=== PATIENT | female | born 1995 | race Caucasian/White ===

== ENCOUNTER 2018-03-09 18:57 | Inpatient (IN) | payer BC, OTHER ==
[~2018-03-09] VITALS: Ht 165.1 cm; Wt 65.8 kg
--- NOTE | 2018-03-09 21:50 | NUR ---
PRE ADMISSION NOTE Pt is a 23 y/o female seen at intake, A&Ox4, ambulatory with steady gait. Pt is currently intoxicated from heroin IV and Xanax PO. Reports the following substance use history: 1. Xanax 3-4 mg daily for 3 weeks, last intake of 4 mg 1 hour ago. 2. Heroin IV 0.5-1 g daily for 3 weeks, last intake of 1 g 4 hours ago. 3. Methamphetamine IV 0.5 g daily for 3 weeks, last intake of 0.5 g "3-4 days ago." 4. Cocaine IV once 3 days ago. 5. Marijuana "a few hits" occasionally, last intake 1 day ago. Vital signs: BP 132/75, HR 114, RR 19, T 98.5, 02 98%, Pain 5/10 in hips described as cramps. Pt reports PMH of anxiety, depression, PTSD, ADHD, and bipolar disorder. Pt brought home meds, explained to pt that any controlled substances will be disposed of, pt verbalized understanding. Pt reports seizure history "two to three times" last one was "3-4 months ago" and did not receive medical care for it. Pt reports that her mother who is a nurse watched her "seize on the floor at home and didn't want to call the ambulance" after she stopped taking heroin that was laced with benzodiazepines. Pt reports OD x 2 from heroin. Pt is stable to arrive on the unit. Endorsed to primary care nurse.
[2018-03-09 22:15] VITALS: BP 132/75
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
[2018-03-09] MEDS ORDERED: SRC OPIOID WITHDRAWAL ADMITTING PROTOCOL XX PRN ×2 (22:30→22:45)
[2018-03-09] MEDS ORDERED: SRC BENZO WITHDRAWAL ADMITTING PROTOCOL XX PRN ×2 (22:30→22:45)
[2018-03-09] MEDS ORDERED: GABA-536 PO (22:59)
[2018-03-09] MEDS ORDERED: PRAZ2CAP2 PO (22:59)
[2018-03-09] MEDS ORDERED: ONDA8TAB13 PO (22:59)
[2018-03-09] MEDS ORDERED: BUSP10TA3 PO (22:59)
[2018-03-09] MEDS ORDERED: LEVE500T20 PO (22:59)
[2018-03-09] MEDS ORDERED: METH500T PO (22:59)
[2018-03-09] MEDS ORDERED: HYDR50CA PO (22:59)
[2018-03-09] MEDS ORDERED: ETON1VAG VG (22:59)
[2018-03-09] MEDS ORDERED: HYDR12.5 PO (22:59)
[2018-03-09] MEDS ORDERED: LOPERAMIDE HCL 2 MG CAPSULE PO PRN ×2 (23:00)
[2018-03-09] MEDS ORDERED: MAG HYDROX/AL HYDROX/SIMETH 30 ML LIQUID UDC PO PRN (23:00)
[2018-03-09] MEDS ORDERED: DIAZEPAM 10 MG TABLET PO PRN ×2 (23:00)
[2018-03-09] MEDS ORDERED: MAGNESIUM HYDROXIDE 30 ML LIQUID UDC PO PRN (23:00)
[2018-03-09] MEDS ORDERED: LORAZEPAM 2 MG/1 ML VIAL IM PRN (23:00)
[2018-03-09] MEDS ORDERED: MIRALAX 17 GM POWD.PACK PO PRN (23:00)
[2018-03-09] MEDS ORDERED: ONDANSETRON ODT 4 MG TAB.RAPDIS SL PRN (23:00)
[2018-03-09] MEDS ORDERED: ONDANSETRON 4 MG/2 ML VIAL IM PRN (23:00)
[2018-03-09] MEDS ORDERED: DICYCLOMINE HCL 20 MG TABLET PO PRN (23:00)
[2018-03-09] MEDS ORDERED: BUPRENORPHINE HCL 2 MG TAB.SUBL SL PRN (23:00)
[2018-03-09] MEDS ORDERED: CLONIDINE HCL 0.1 MG TABLET PO PRN (23:00)
[2018-03-09] MEDS ORDERED: DIAZEPAM 5 MG TABLET PO PRN (23:00)
[2018-03-09] MEDS ORDERED: CARI3CAP PO (23:20)
[2018-03-09 23:34] LABS: BASOPHILS # (AUTO) 0.1 K/uL (0.0-8.0); BASOPHILS % (AUTO) 0.7 % (0.0-2.0); EOSINOPHILS # (AUTO) 0.3 K/uL (0.0-0.7); EOSINOPHILS % (AUTO) 3.3 % (0.0-7.0); HEMATOCRIT 37.9 % (31.2-41.9); HEMOGLOBIN 12.7 g/dL (10.9-14.3); LYMPHOCYTES # (AUTO) 3.7 K/uL (20.0-40.0); LYMPHOCYTES % (AUTO) 45.3 % (20.5-51.5); MEAN CORPUSCULAR HEMOGLOBIN 26.5 uug (24.7-32.8); MEAN CORPUSCULAR HGB CONC 34 g/dL (32.3-35.6); MEAN CORPUSCULAR VOLUME 78.9 fL (75.5-95.3); MONOCYTES # (AUTO) 0.5 K/uL (2.0-10.0); MONOCYTES % (AUTO) 6.3 % (0.0-11.0); NEUTROPHILS # (AUTO) 3.7 K/uL (1.8-8.9); NEUTROPHILS % (AUTO) 44.4 % (38.5-71.5); PLATELET COUNT (AUTO) 362 K/uL (179-408); WHITE BLOOD COUNT (AUTO) 8.2 K/uL (3.8-11.8)
[2018-03-09 23:45] LABS: ETHANOL < 3 MG/DL (0-0)
[2018-03-09 23:46] LABS: *URINE HCG, QUAL NEGATIVE (NEGATIVE)
[2018-03-09 23:50] LABS: ALANINE AMINOTRANSFERASE 110 U/L (14-59); ALKALINE PHOSPHATASE 85 U/L (50-136); ASPARTATE AMINOTRANSFERASE 279 U/L (15-37); BILIRUBIN,TOTAL 0.5 mg/dL (0.2-1.0); CARBON DIOXIDE 32 mmol/L (21-32); CHLORIDE 98 mmol/L (98-107); CREATININE 0.9 mg/dL (0.6-1.3); GLUCOSE 82 mg/dL (74-106); MAGNESIUM 1.4 mg/dL (1.8-2.4); POTASSIUM 3.4 mmol/L (3.5-5.1); TOTAL PROTEIN, SERUM 7.3 g/dL (6.4-8.2); UREA NITROGEN, BLOOD 10 mg/dL (7-18)
[2018-03-09 23:54] LABS: *AMPHETAMINE, URINE POSITIVE (NEGATIVE); *BARBITURATE, URINE NEGATIVE (NEGATIVE); *CANNABINOID, URINE POSITIVE (NEGATIVE); *COCCAINE, URINE POSITIVE (NEGATIVE); *OPIATE, URINE POSITIVE (NEGATIVE); *PHENCYCLIDINE SCREEN,URINE NEGATIVE (NEGATIVE)
[2018-03-09 23:58] LABS: THYROID STIMULATING HORMONE 0.163 mIU/mL (0.358-3.740)
--- NOTE | 2018-03-10 00:58 | NUR ---
V/S refused and COWS and CIWA Assessment deferred for sleep. Respirations even and unlabored. Will continue to monitor.
--- NOTE | 2018-03-10 04:57 | NUR ---
V/S refused and COWS and CIWA Assessment deferred for sleep. Respirations even and unlabored. Will continue to monitor.
--- NOTE | 2018-03-10 07:00 | NUR ---
End of shift note Newly admitted patient. Pt was continuously noted with fatigue, anxiety, and agitation. Pt remained in room for majority of shift except to get food from kitchen and to go smoke on smoking patio. Pt remained compliant and cooperative with all aspects of treatment. Pt was not given any PRN medications during shift. Pt remains on PRN medications until further evaluation from MD in AM. Pt slept for a total of 7 HRS. COWS and CIWA were deferred for moderate intoxication and sleep. Respirations even and unlabored. Will endorse to day shift nurse.
--- NOTE | 2018-03-10 07:30 | NUR ---
START OF SHIFT Endorse rcvd from ongoing nurse, client is admitted for alprazolam, opioid withdrawal. Client also uses Methamphetamine, Adderall, and cocaine. Client is in room, lying on her back, she sounds asleep, easy to awake, RR 16, even, non-labored. Client has an uneventful night, she slept 7 hrs. Bed in lowest/loxked position. Side rails x 2 up/padded. Call light within reach. Will continue to monitor.
[2018-03-10 08:30] VITALS: BP 103/76
[2018-03-10] MEDS: METHOCARBAMOL 750 MG TABLET PO PRN (08:34)
[2018-03-10] MEDS: MULTIVITAMINS,THERAPEUTIC TABLET PO SCH (08:34)
[2018-03-10] MEDS: HYDROXYZINE PAMOATE 25 MG CAPSULE PO PRN (08:34)
[2018-03-10] MEDS: IBUPROFEN 600 MG TABLET PO PRN (08:35)
[2018-03-10] MEDS: ACETAMINOPHEN 325 MG TABLET PO PRN (08:35)
--- NOTE | 2018-03-10 08:35 | NUR ---
CIWA 15/COWS 13 PRN Valium 10mg PO, for withdrawal symptoms and CIWA 15, Bentyl 20mg PO for abdominal spasms, Clonidine 0.1mg PO for agitation, cold/hills, Vistaril 50mg PO for anxiety, Motrin 600mg and Tylenol 650mg for headache 10/19, Robaxin 750mg for myalgia on BLE. Client declined PRN Subutex at this time statig, "I feel like shit, but I know I'm not ready yet." Call light within reach.
--- NOTE | 2018-03-10 08:42 | NUR ---
PPD Test administered to L forearm.
[2018-03-10] MEDS ORDERED: POTASSIUM CHLORIDE 20 MEQ TAB.PRT.SR PO ONE (09:00)
[2018-03-10] MEDS ORDERED: TUBERCULIN,PURIF.PROT.DERIV. 5 TU/0.1 ML TEST ID ONE (09:00)
[2018-03-10] MEDS ORDERED: MAGNESIUM OXIDE 400 MG TABLET PO ONE (09:00)
--- NOTE | 2018-03-10 09:35 | NUR ---
Reassess PRN Valium 10mg, Bentyl 20mg, Clonidine 0.1mg, Vistaril 50mg, Motrin 600mg and Tylenol 650mg and Robaxin 750mg: CIWA 10, client reports slight relief from anxiety, agitation, abdominal spasms, cold/chills headache and myalgia. Call light within reach. Will continue to monitor.
--- NOTE | 2018-03-10 09:53 | NUR ---
COWS 14 & PRN Subutex 4mg SL Client presents with anxiety, mb increased P 100, irritability, yawning, enlarged pupils, nasal congestion, and difficulty concentrating. Subutex 4mg SL administered. Will continue to monitor. Call light within reach.
[2018-03-10] MEDS ORDERED: FLUO20CA36 PO (09:55)
--- NOTE | 2018-03-10 10:23 | NUR ---
Reassess PRN Subutex 4mg SL, COWS 10 Client reports slight relief from anxiety, P 88, irritability, and generalized body aches, client is able to increase activity, took a shower, put on make-up and join activity group. Will continue to monitor. Call light within reach.
--- NOTE | 2018-03-10 10:30 | NUR ---
Therapist prompted client to attend group therapy.
[2018-03-10 12:54] VITALS: BP 117/70
[2018-03-10] MEDS ORDERED: 5 DAY TAPER BUPRENORPHINE -SERENITY PROTOCOL SL PRN (13:00)
[2018-03-10] MEDS ORDERED: 5 DAY TAPER VALIUM-SERENITY PROTOCOL PO PRN (13:00)
[2018-03-10] MEDS: HYDROCHLOROTHIAZIDE 12.5 MG CAPSULE PO SCH (13:18)
[2018-03-10] MEDS: GABAPENTIN 400 MG CAPSULE PO SCH ×2 (13:18→17:37)
[2018-03-10] MEDS: BUPRENORPHINE HCL 2 MG TAB.SUBL SL SCH ×3 (13:18→20:18)
--- NOTE | 2018-03-10 13:18 | NUR ---
CIWA 15 / COWS 14 Client presents with agitation, anxiety, cold/chills, enlarged pupils, fine tremors, flushed facial skin, generalized muscle aches, abdominal cramps, and difficulty concentrating. Subutex 4mg SL and Gabapentin 400mg PO administered, will continue to monitor. Call light within reach.
[2018-03-10] MEDS: DIAZEPAM 10 MG TABLET PO SCH ×2 (15:27→20:17)
[2018-03-10 16:55] VITALS: BP 119/69
[2018-03-10] MEDS ORDERED: busPIRone 10 MG TABLET PO SCH (17:00)
[2018-03-10] MEDS: busPIRone 5 MG TABLET PO SCH (17:36)
--- NOTE | 2018-03-10 17:36 | NUR ---
CIWA 14 / COWS 14 Client continues to presents with emotional volatility, flat affect, agitation, anxiety, cold/chills, enlarged pupils, fine tremors, flushed facial skin, generalized muscle aches, abdominal cramps, and difficulty concentrating. Subutex 4mg SL and Gabapentin 400mg PO administered, will continue to monitor. Call light within reach.
--- NOTE | 2018-03-10 19:14 | NUR ---
END OF SHIFT Endorse client to incoming nurse, client is in room, a/o x 4, client continues to presents with emotional volatility, flat affect, agitation, anxiety, cold/chills, enlarged pupils, fine tremors, flushed facial skin, generalized muscle aches, abdominal cramps, poor appetite, and difficulty concentrating. PRN Valium 10mg PO, for withdrawal symptoms and CIWA 15, Bentyl 20mg PO for abdominal spasms, Clonidine 0.1mg PO for agitation, cold/hills, Vistaril 50mg PO for anxiety, Motrin 600mg and Tylenol 650mg for headache 10/19, Robaxin 750mg for myalgia on BLE, Subutex 4mg SL for COWS 13. Last CIWA 14 / COWS 14 @ 1700. Client is compliant with group therapy. Client consumed 25-50% of meals. PO fluid intake 846mL, void x 1. Client requested to be tested for Chlamydia, GC, Trichoma, sample urine not provided yet. [place] precautions. Call light within reach.
--- NOTE | 2018-03-10 19:22 | NUR ---
Start of shift note Received report from day shift nurse. Pt is a 23 yo female, A+Ox4, presenting to [facility] for medically supervised Benzo/Opiate withdrawal. Pt was also using Adderall, Methamphetamines, and Cocaine. Pt noted with restlessness, anxiety, and agitation. Pt has HX of seizure, PNA, PTSD< ADHD, anxiety, depression, and bipolar disorder which will be monitored during shift. Pt is on 5 day Valium and 5 day Subutex tapers, tolerated well. Respirations even and unlabored. Will continue to monitor.
[2018-03-10 20:12] VITALS: BP 120/77
--- NOTE | 2018-03-10 20:12 | NUR ---
COWS and CIWA Assessment COWS: 10 and CIWA: 10. Pt noted with fine tremors, pulse 80, sweat on brow, anxiety, agitation, chills, enlarged pupils, restlessness, mild diffuse discomfort, stuffy nose, and mild stomach cramping. Respirations even and unlabored. Will continue to monitor.
[2018-03-10] MEDS: PRAZOSIN HCL 1 MG CAPSULE PO SCH (20:18)
--- NOTE | 2018-03-11 00:58 | NUR ---
V/S refused and COWS and CIWA Assessment deferred for sleep. Respirations even and unlabored. Will continue to monitor.
--- NOTE | 2018-03-11 04:53 | NUR ---
V/S refused and COWS and CIWA Assessment deferred for sleep. Respirations even and unlabored. Will continue to monitor.
--- NOTE | 2018-03-11 07:00 | NUR ---
End of shift note Pt was continuously noted with agitation, restlessness, and anxiety. Pt remained in room for majority of shift except to get food from kitchen, to go smoke on smoking patio, and to interact with other patients in recreational room. Pt remained cooperative and compliant with all aspects of treatment. Pt was not given any PRN medications during shift. Pt remains on 5 day Valium and 5 day Subutex tapers, tolerated well. Pt slept for a total of 8 HRS. Last COWS: 10 and Last CIWA: 10 @2011. Respirations even and unlabored. Will endorse to day shift nurse.
[2018-03-11 07:24] LABS: ALANINE AMINOTRANSFERASE 85 U/L (14-59); ALKALINE PHOSPHATASE 72 U/L (50-136); ASPARTATE AMINOTRANSFERASE 134 U/L (15-37); BILIRUBIN,TOTAL 0.3 mg/dL (0.2-1.0); CARBON DIOXIDE 31 mmol/L (21-32); CHLORIDE 104 mmol/L (98-107); CREATININE 0.8 mg/dL (0.6-1.3); GLUCOSE 95 mg/dL (74-106); MAGNESIUM 1.7 mg/dL (1.8-2.4); TOTAL PROTEIN, SERUM 6.2 g/dL (6.4-8.2); UREA NITROGEN, BLOOD 9 mg/dL (7-18)
[2018-03-11 07:35] LABS: THYROID STIMULATING HORMONE < 0.007 mIU/mL (0.358-3.740)
--- NOTE | 2018-03-11 07:46 | NUR ---
BEGINNING OF SHIFT Patient received in bed with eyes closed, respirations even and unlabored. Patient endorsement report received from overnight caregiver nurse, all pertinent information was discussed. Will educate patient regarding plan of care for the day and medication regimen. Patient with admitting Dx: opiate/bzo withdrawal. Also with Methamphetamine, aderral and cocaine substance use. Patient with Ongoing 5 day Valium and 5 day Subutex taper as ordered. Per overnight caregiver patient with last COW score of: 10, and last CIWA score of: 10. Received no PRNs during overnight caregiver. Patient slept for 8 hours. Safety measures are in place. call light kept with in reach, will continue to monitor.
[2018-03-11 08:52] VITALS: BP 91/63
[2018-03-11] MEDS: HYDROCHLOROTHIAZIDE 12.5 MG CAPSULE PO SCH (08:54)
[2018-03-11] MEDS: busPIRone 5 MG TABLET PO SCH ×3 (08:54→16:50)
[2018-03-11] MEDS: BUPRENORPHINE HCL 2 MG TAB.SUBL SL SCH ×3 (08:54→22:10)
[2018-03-11] MEDS: FLUOXETINE HCL 20 MG CAPSULE PO SCH (08:54)
[2018-03-11] MEDS: GABAPENTIN 400 MG CAPSULE PO SCH ×3 (08:54→16:50)
[2018-03-11] MEDS: MULTIVITAMINS,THERAPEUTIC TABLET PO SCH (08:54)
[2018-03-11] MEDS: DIAZEPAM 5 MG TABLET PO SCH ×4 (08:54→22:11)
--- NOTE | 2018-03-11 09:00 | NUR ---
COW/CIWA ASSESSMENT Noted exhibiting the following s/sx of withdrawal: elevated heart rate, c/o chills, difficulty sitting still, enlarged pupils, nasal congestion, moist eyes, tremors that can be felt but not seen, yawning, anxiety and agitation, current COW score of: 10, current CIWA score of: 9.
[2018-03-11 09:09] LABS: HEPATITIS B SURFACE AG Negative (Negative)
[2018-03-11] MEDS ORDERED: MAGNESIUM OXIDE 400 MG TABLET PO ONE (12:30)
[2018-03-11 12:50] VITALS: BP 107/66
--- NOTE | 2018-03-11 13:20 | NUR ---
COW/CIWA ASSESSMENT Noted exhibiting the following s/sx of withdrawal: c/o chills, difficulty sitting still, enlarged pupils, nasal congestion, moist eyes, tremors that can be felt but not seen, yawning, anxiety and agitation, current COW score of: 9, current CIWA score of: 9.
--- NOTE | 2018-03-11 15:45 | NUR ---
MRSA NARES + Received MRSA results, as per results MRSA positive of nares, notified Dr. Lenz with new orders for contact isolation and Bactroban oint as ordered, patient was provided and teaching regarding MRSA nares, verbalized understanding.
[2018-03-11 16:54] VITALS: BP 99/65
[2018-03-11] MEDS: MUPIROCIN 2% OINT 22 GM TUBE NS SCH ×2 (17:37→22:12)
--- NOTE | 2018-03-11 19:00 | NUR ---
END OF SHIFT Patient continues under close observation, alert and oriented x4, ongoing Subutex and Valium taper as ordered. Patient received no PRN mediations during shift. Was seen and examined by Dr. Lenz during shift. Patients magnesium was replaced as ordered. Noted exhibiting the following s/sx of withdrawal: elevated heart rate, c/o chills, difficulty sitting still, enlarged pupils, nasal congestion, moist eyes, tremors that can be felt but not seen, yawning, anxiety and agitation, last COW score of: 10, last CIWA score of: 9. Encouraged to develop coping skills and utilization of non pharmacological interventions. Patient appears disheveled, odorous and unkempt, noted with flat affect, avoidant eye contact and depressed mood. Encouraged to attend group therapies/sessions to learn new coping skills to prevent relapse. Safety measures are in place. Received MRSA results, as per results MRSA positive of nares, notified Dr. Lenz with new orders for contact isolation and Bactroban oint as ordered, patient was provided and teaching regarding MRSA nares, verbalized understanding. Call light kept with in reach, will continue to monitor. Patient endorsed to shiftman nurse, all pertinent information was discussed.
--- NOTE | 2018-03-11 19:43 | NUR ---
START OF SHIFT NOTE Rcvd report from outgoing nurse. Pt is a 23 y/o female A/O to person, place, time, and purpose. Pt was admitted for medically supervised withdrawal from Benzodiazepines and Opiates. Pt is on day 2 of a 5 day Vlium and Subutex taper. Pt does have a past h/o withdrawal induced seizure, the last one 3 months ago. Pt has been presenting w/ Pt rcvd no PRN medications during previous shift. Last CIWA 9 and COWS 10 @ 1600. Call light is within reach. Pt will continue to be monitored and needs met. Addendum: 03/11/18 at 2228 by SHERRY FOSTER RN Wrong time and note.
--- NOTE | 2018-03-11 19:53 | NUR ---
START OF SHIFT NOTE Rcvd report from outgoing nurse. Pt is a 23 y/o female A/O to person, place, time, and purpose. Pt was admitted for medically supervised withdrawal from Benzodiazepines and Opiates. Pt is on day 2 of a 5 day Vlium and Subutex taper. Pt does have a past h/o withdrawal induced seizure, the last one 3 months ago. Pt has been presenting w/fine tremors, clammy skin, nasal stuffiness, restlessness, depressed mood, and anxiety. Pt rcvd no PRN medications during previous shift. Last CIWA 9 and COWS 10 @ 1600. Call light is within reach. Pt will continue to be monitored and needs met.
[2018-03-11 20:01] VITALS: BP 124/76
--- NOTE | 2018-03-11 20:01 | NUR ---
CIWA AND COWS ASSESSMENT CIWA 9 and COWS 10. Pt has been presenting w/fine tremors, clammy skin, nasal stuffiness, restlessness, depressed mood, and anxiety. V/S; T:98.0, P:90, RR:12, SPO2:10, BP:124/76.
[2018-03-11] MEDS: PRAZOSIN HCL 1 MG CAPSULE PO SCH (22:10)
[2018-03-11] MEDS: IBUPROFEN 600 MG TABLET PO PRN (22:16)
[2018-03-11] MEDS: METHOCARBAMOL 750 MG TABLET PO PRN (22:16)
--- NOTE | 2018-03-11 22:16 | NUR ---
PRN ROBAXIN AND MOTRIN ADMINISTRATION Robaxin 750mg an Motrin 600mg given for body aches and pain. Pt c/o 610 pain that i generalized and also of a head ache. Will reassess pt in 1 hr.
--- NOTE | 2018-03-11 23:16 | NUR ---
NORA CONDE AND ALANNA REASSESSMENT Pt is in bed and states relief from pain. She states "its like 04/21 not". Will continue to monitor pt.
--- NOTE | 2018-03-12 00:05 | NUR ---
DILLON AND ALLY DEFERRED Pt is in bed w/ her eyes closed. Pt's respirations are unlabored and even.
--- NOTE | 2018-03-12 04:07 | NUR ---
CIWA AND COWS DEFERRED Pt is in bed w/ her eyes closed. Pt's respirations are unlabored and even.
[2018-03-12 06:52] LABS: BILIRUBIN,TOTAL 0.2 mg/dL (0.2-1.0); MAGNESIUM 1.6 mg/dL (1.8-2.4); POTASSIUM 3.8 mmol/L (3.5-5.1); TOTAL PROTEIN, SERUM 5.5 g/dL (6.4-8.2)
--- NOTE | 2018-03-12 07:13 | NUR ---
END OF SHIFT NOTE Endorsed pt to oncoming nurse. Pt is a 23 y/o female A/O to person, place, time, and purpose. Pt was admitted for medically supervised withdrawal from Benzodiazepines and Opiates. Pt completed day 2 of a 5 day Vlium and Subutex taper. Pt does have a past h/o withdrawal induced seizure, the last one 3 months ago. Pt continued presenting w/fine tremors, clammy skin, nasal stuffiness, restlessness, depressed mood, and anxiety. Pt denies any S/I or H/I. PRN Robaxin and Motrin were given and noted effective. Pts fluid intake was 1658ml and she slept for 8hrs.Last CIWA 9 and COWS 10 @ 1999. Call light is within reach.
--- NOTE | 2018-03-12 07:52 | NUR ---
BEGINNING OF SHIFT Patient endorsement report received from information security analyst nurse, all pertinent information was discussed. Patient received in bed with eyes closed, respirations even and unlabored. Will educate patient regarding plan of care for the day and medication regimen. Patient with Ongoing 5 day Valium and 5 day Subutex taper as ordered, scheduled to begin day 2 of taper. Per information security analyst patient with last COW score of: 10, and last CIWA score of: 9. Received PRN: Motrin and Robaxin during information security analyst. Patient slept for 8 hours. Safety measures are in place. call light kept with in reach, will continue to monitor.
[2018-03-12 08:55] VITALS: BP 91/64
[2018-03-12] MEDS: busPIRone 5 MG TABLET PO SCH ×3 (08:57→16:36)
[2018-03-12] MEDS: FLUOXETINE HCL 20 MG CAPSULE PO SCH (08:57)
[2018-03-12] MEDS: MULTIVITAMINS,THERAPEUTIC TABLET PO SCH (08:57)
[2018-03-12] MEDS: HYDROCHLOROTHIAZIDE 12.5 MG CAPSULE PO SCH (08:57)
[2018-03-12] MEDS: DIAZEPAM 5 MG TABLET PO SCH ×3 (08:57→21:00)
[2018-03-12] MEDS: GABAPENTIN 400 MG CAPSULE PO SCH ×3 (08:57→16:36)
[2018-03-12] MEDS: MUPIROCIN 2% OINT 22 GM TUBE NS SCH ×2 (08:57→21:00)
[2018-03-12] MEDS ORDERED: BUPRENORPHINE HCL 2 MG TAB.SUBL SL SCH (09:00)
[2018-03-12] MEDS ORDERED: MAGNESIUM OXIDE 400 MG TABLET PO ONE (12:45)
[2018-03-12 13:36] VITALS: BP 119/68
[2018-03-12] MEDS: BUPRENORPHINE HCL 2 MG TAB.SUBL SL SCH ×2 (14:53→21:00)
--- NOTE | 2018-03-12 17:04 | NUR ---
COW/CIWA ASSESSMENT Patient still noted presenting with: elevated heart rate, c/o chills, difficulty sitting still, enlarged pupils, nasal congestion, moist eyes, tremors that can be felt but not seen, yawning, anxiety and agitation, current COW score of: 10, current CIWA score of: 9.
[2018-03-12 17:13] VITALS: BP 108/59
--- NOTE | 2018-03-12 19:03 | NUR ---
END OF SHIFT Patient alert and oriented x4, Ongoing Subutex and Valium taper as ordered, patient currently on day 2 of tapers. Patient continues under close observation. Patients magnesium was replaced as ordered. Continues on Contact isolation due to MRSA nares. Isolation precautions were observed at all times. Continues with ongoing Bactroban ointment, administered as ordered. Patient appears disheveled, odorous and unkempt, noted with flat affect, avoidant eye contact and depressed mood. Encouraged to attend group therapies/sessions to learn new coping skills to prevent relapse. Noted exhibiting the following s/sx of withdrawal: elevated heart rate, c/o chills, difficulty sitting still, enlarged pupils, nasal congestion, moist eyes, tremors that can be felt but not seen, yawning, anxiety and agitation, last COW score of: 10, last CIWA score of: 9. Encouraged to develop coping skills and utilization of non pharmacological interventions. Safety measures are in place. Call light kept with in reach, will continue to monitor. Patient endorsed to shift manager nurse, all pertinent information was discussed.
--- NOTE | 2018-03-12 19:37 | NUR ---
START OF SHIFT NOTE Rcvd report from outgoing nurse. Pt is a 23 y/o female A/O to person, place, time, and purpose. Pt was admitted for medically supervised withdrawal from Benzodiazepines and Opiates. Pt is on day 3 of a 5 day Subutex and Valium taper. Pt has been presenting w/ anxiety, restlessness, depressed mood, flat affect, lethargy, sweats, fine tremors, flushing, and sweats. Pt rcvd no PRN medications during previous shift. Last CIWA 9 and COWS 10 @ 1600. Call light is within reach. Pt will continue to be monitored and needs met.
[2018-03-12 20:07] VITALS: BP 121/79
--- NOTE | 2018-03-12 20:07 | NUR ---
CIWA AND COWS ASSESSMENT CIWA 9 and COWS 10. Pt has been presenting w/ anxiety, restlessness, depressed mood, flat affect, lethargy, sweats, fine tremors, flushing, and sweats. V/S: T:98.7, P:100, RR:14, SPO2:98, BP:121/79.
[2018-03-12] MEDS: PRAZOSIN HCL 1 MG CAPSULE PO SCH (21:00)
--- NOTE | 2018-03-12 21:00 | NUR ---
NURSING NOTE Pt is in bed w/ her eyes closed. Pt is unarousable to voice and touch. All scheduled meds held. hydraulic rubbish compactor mechanic and MD made aware.
--- NOTE | 2018-03-13 00:07 | NUR ---
CIWA AND COWS DEFERRED Pt is in bed w/ her eyes closed. Pt's respirations are unlabored and even.
--- NOTE | 2018-03-13 04:07 | NUR ---
CIWA AND COWS DEFERRED Pt is in bed w/ her eyes closed. Pt's respirations are unlabored and even.
--- NOTE | 2018-03-13 06:58 | NUR ---
END OF SHIFT NOTE Endorsed pt to oncoming nurse. Pt is a 23 y/o female A/O to person, place, time, and purpose. Pt was admitted for medically supervised withdrawal from Benzodiazepines and Opiates. Pt completed day 3 of a 5 day Subutex and Valium taper. Pt continued presenting w/ anxiety, drowsiness, depressed mood, flat affect, lethargy, sweats, fine tremors, flushing, and sweats. Pt denies any S/I or H/I. No PRN medications during previous shift. Pts fluid intake was 1591ml and she slept for 11hrs. Last CIWA 9 and COWS 10 @ 1999. Call light is within reach.
--- NOTE | 2018-03-13 07:30 | NUR ---
Start of shift note; Received report from night nurse. Patient is a 23 year old female admitted on 03/09/18 for Benzodiazepine, Opiate withdrawal. Patient was placed on 5 day Valium and 5 day Subutex tapers. Patient is AOX4, presented with anxiety, agitation, restless legs, complaining of nausea, headache, tremors, intermittent sweats, nasal stuffiness. All safety measures secured. Will continue to monitor patient.
[2018-03-13 08:00] VITALS: BP 96/66
--- NOTE | 2018-03-13 08:00 | NUR ---
COWS/CIWA Assessment; Patient is AOX4, presented with anxiety, agitation, restless legs, complaining of nausea, headache, tremors, intermittent sweats, nasal stuffiness. Patient's current COWS score is 10 and CIWA of 11. Will continue to monitor patient.
[2018-03-13 08:04] LABS: CREATININE 0.9 mg/dL (0.6-1.3); MAGNESIUM 1.5 mg/dL (1.8-2.4)
[2018-03-13] MEDS: MULTIVITAMINS,THERAPEUTIC TABLET PO SCH (09:16)
[2018-03-13] MEDS: busPIRone 5 MG TABLET PO SCH ×3 (09:16→16:55)
[2018-03-13] MEDS: GABAPENTIN 400 MG CAPSULE PO SCH ×3 (09:16→16:55)
[2018-03-13] MEDS: MUPIROCIN 2% OINT 22 GM TUBE NS SCH ×2 (09:16→20:48)
[2018-03-13] MEDS: HYDROCHLOROTHIAZIDE 12.5 MG CAPSULE PO SCH (09:17)
[2018-03-13] MEDS: DIAZEPAM 5 MG TABLET PO SCH ×2 (09:17→20:47)
[2018-03-13] MEDS: FLUOXETINE HCL 20 MG CAPSULE PO SCH (09:17)
[2018-03-13] MEDS: BUPRENORPHINE HCL 2 MG TAB.SUBL SL SCH ×3 (09:18→20:47)
[2018-03-13] MEDS: IBUPROFEN 600 MG TABLET PO PRN (09:52)
--- NOTE | 2018-03-13 09:55 | NUR ---
PRN medication; Patient reported nausea and headache/pain rated 7/10 on pain scale. PRN Motrin given for pain PO and PRN Zofran 4mg ODT given for nausea. All safety measures secured. Will continue to monitor patient for effectiveness of medication.
--- NOTE | 2018-03-13 10:55 | NUR ---
Re-assessment; Patient denies nausea and headache. PRN Zofran and Motrin noted to be effective.
[2018-03-13 11:06] LABS: *TRIC.VAG. NAA Negative (Negative)
[2018-03-13] MEDS ORDERED: MAGNESIUM OXIDE 400 MG TABLET PO ONE (11:15)
[2018-03-13 12:00] VITALS: BP 102/61
--- NOTE | 2018-03-13 12:00 | NUR ---
COWS/CIWA Assessment; Patient is AOX4, presented with anxiety, agitation, restless legs, complaining of nausea, headache, tremors, intermittent sweats, nasal stuffiness. Patient's COWS score continues to be 10 and CIWA of 11. Will continue to monitor patient.
--- NOTE | 2018-03-13 12:00 | NUR ---
Magnesium supplement; Patient's magnesium is 1.5. Supplemented patient with Mag-ox 800 mg PO for supplement per MD order.
--- NOTE | 2018-03-13 13:14 | NUR ---
Therapist prompted client to attend group therapy sessions.
[2018-03-13 16:00] VITALS: BP 118/67
--- NOTE | 2018-03-13 18:23 | NUR ---
End of shift note; Patient is AOX4, presented with anxiety, agitation, restless legs, complaining of nausea, headache, tremors, intermittent sweats, nasal stuffiness. Patient's last COWS score is 10 and CIWA of 10 at 1600. Patient remained compliant with treatment plan and medication regime. Medications were effective in reducing withdrawal symptoms. Patient participated in group activates and therapy. Encouraged patient to maintain adequate fluid and nutritional intake, patient verbalized understanding. All safety measures secured. Met all needs.
--- NOTE | 2018-03-13 19:10 | NUR ---
Start of Shift Received 23 year old female patient admitted 03/09/18 to [facility] for medically supervised withdrawal from Benzodiazepines and Opiates. Pt was given PRN Zofran and Motrin on day shift. Last CIWA 10 and COWS 10 @1600. Pt is in bed resting with eyes closed. Respirations are even and unlabored. Bed is low, side rails up x 2, and call hart in reach. Will continue to monitor.
[2018-03-13 20:00] VITALS: BP 108/60
--- NOTE | 2018-03-13 20:00 | NUR ---
CIWA/COWS deferred Pt is in bed resting with eyes closed. Respirations are even and unlabored. Bed is low, side rails up x 2, and call hart in reach. Will continue to monitor.
--- NOTE | 2018-03-13 20:45 | NUR ---
CIWA 10/COWS 10 Pt anxious, agitated, withdrawn, flat affect.
[2018-03-13] MEDS: PRAZOSIN HCL 1 MG CAPSULE PO SCH (20:47)
[2018-03-13] MEDS: diphenhydrAMINE 50 MG CAPSULE PO PRN (23:06)
--- NOTE | 2018-03-13 23:06 | NUR ---
PRN Benadryl/Vistaril Pt anxious, restless, and requested something to help sleep. Medication given per order. Will monitor effect.
[2018-03-13] MEDS: HYDROXYZINE PAMOATE 25 MG CAPSULE PO PRN (23:08)
--- NOTE | 2018-03-14 | NUR ---
CIWA/COWS deferred and Vitals refused Pt resting with eyes closed. Respirations even and unlabored. CIWA/COWS deferred and pt refused vitals. Continue to monitor.
--- NOTE | 2018-03-14 00:08 | NUR ---
Reassess PRN Benadryl/Vistaril Medication effective. Pt resting with eyes closed. Respirations are even and unlabored. Continue to monitor.
--- NOTE | 2018-03-14 04:00 | NUR ---
CIWA/COWS deferred and Vitals refused Pt resting with eyes closed. Respirations even and unlabored. CIWA/COWS deferred and pt refused vitals. Continue to monitor.
--- NOTE | 2018-03-14 06:54 | NUR ---
End of Shift Endorsing 23 year old female patient admitted 03/09/18 to [facility] for medically supervised withdrawal from Benzodiazepines and Opiates. Pt currently on day 5 of a 5 day Valium and 5 day Subutex taper, which she is tolerating well. Pt received PRN Benadryl and Vistaril on trust and estates attorney. Last CIWA 10 and COWS 10 @2044. Pt is in bed resting with eyes closed. Respirations are even and unlabored. Bed is low, side rails up x 2, and call hart in reach. PO intake 1360 ml, voided x 3, BM x 0, and slept 9 hours.
[2018-03-14 07:06] LABS: *GC NAA Negative (Negative)
--- NOTE | 2018-03-14 07:30 | NUR ---
Start of Shift Note: Report received from shift supervisor film processing nurse. Pts last COWS was 10 and last CIWA was 10. Pt slept for 9 hours. Upon start of shift, pt was in bed with eyes closed. Pt has no complaints at this time. Pt educated with current plan of care. Pt verbalized understanding. Pt currently on 5-day Valium and 5-day Subutex taper. Bed in lowest position. Side rails up x2. Call light functioning and within reach. All needs attended and met. Will continue to monitor.
[2018-03-14 08:00] VITALS: BP 97/55
--- NOTE | 2018-03-14 08:00 | NUR ---
COWS 9 CIWA 9 Pt noted with restlessness, mild anxiety, and mild discomfort. COWS 9 CIWA 9
[2018-03-14 08:30] LABS: CREATININE 0.9 mg/dL (0.6-1.3); MAGNESIUM 1.7 mg/dL (1.8-2.4); POTASSIUM 3.9 mmol/L (3.5-5.1)
[2018-03-14] MEDS: HYDROCHLOROTHIAZIDE 12.5 MG CAPSULE PO SCH (08:39)
[2018-03-14] MEDS: GABAPENTIN 400 MG CAPSULE PO SCH ×3 (08:39→16:46)
[2018-03-14] MEDS: MULTIVITAMINS,THERAPEUTIC TABLET PO SCH (08:39)
[2018-03-14] MEDS: FLUOXETINE HCL 20 MG CAPSULE PO SCH (08:39)
[2018-03-14] MEDS: busPIRone 5 MG TABLET PO SCH ×3 (08:40→16:46)
[2018-03-14] MEDS: MUPIROCIN 2% OINT 22 GM TUBE NS SCH ×2 (08:41→21:57)
[2018-03-14] MEDS ORDERED: DIAZEPAM 5 MG TABLET PO SCH (09:00)
[2018-03-14] MEDS ORDERED: BUPRENORPHINE HCL 2 MG TAB.SUBL SL SCH (09:00)
[2018-03-14] MEDS: IBUPROFEN 600 MG TABLET PO PRN (11:06)
[2018-03-14] MEDS: ACETAMINOPHEN 325 MG TABLET PO PRN (11:06)
--- NOTE | 2018-03-14 11:06 | NUR ---
Motrin and Tylenol PRN: Pt c/o migraine. Pain level 7/10. Encouraged pt to drink more fluids. Pt requested for Excedrin but pt has available PRN medications. Pt agreed to take PRN Motrin and Tylenol. PRN Motrin and Tylenol administered. Will continue to monitor.
[2018-03-14 12:00] VITALS: BP 88/42
--- NOTE | 2018-03-14 12:00 | NUR ---
Tylenol and Motrin Reassessment: Pt still noted with headache pain. Pt stated 8/10 pain level. Pt verbalized she will try to relax and take a nap to get rid of migraine. Will continue to monitor.
--- NOTE | 2018-03-14 12:00 | NUR ---
COWS 9 CIWA 9 Pt noted mild anxiety, mild agitation. Pt is also restless. COWS 9 CIWA 9.
--- NOTE | 2018-03-14 12:08 | NUR ---
Therapist prompted client to attend group therapy sessions.
[2018-03-14] MEDS ORDERED: MAGNESIUM OXIDE 400 MG TABLET PO ONE (12:15)
[2018-03-14] MEDS ORDERED: HYDR12.5 PO (13:39)
[2018-03-14] MEDS ORDERED: GABA-536 PO (13:39)
[2018-03-14] MEDS ORDERED: BUSP10TA3 PO (13:39)
[2018-03-14] MEDS ORDERED: CARI3CAP PO (13:39)
[2018-03-14] MEDS ORDERED: FLUO20CA36 PO (13:39)
[2018-03-14] MEDS ORDERED: METH-406 PO (13:39)
[2018-03-14] MEDS ORDERED: PRAZ2CAP2 PO (13:39)
[2018-03-14 16:00] VITALS: BP 92/52
--- NOTE | 2018-03-14 16:00 | NUR ---
COWS and CIWA deferred: Pt in bed with eyes closed. Respirations even and unlabored. Attempted to assess COWS and CIWA but pt stated she was tired. Will continue to monitor.
--- NOTE | 2018-03-14 18:30 | NUR ---
COWS 7 CIWA 8 Pt noted with slight restlessness, some anxiety. Pt reported some relief from headache. COWS 7 CIWA 8
--- NOTE | 2018-03-14 19:08 | NUR ---
End of Shift Notes: Pt currently in activity room. Pt complained of migraine during shift. PRN Motrin and Tylenol given. Last COWS 7 and CIWA 8. Pt is scheduled to be discharged tomorrow. 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 Fall precautions observed. Bed in lowest position. Side rails up x2. Call light functioning and within reach. All needs attended and met. Will endorse to machinist 2nd shift nurse.
--- NOTE | 2018-03-14 19:30 | NUR ---
START OF SHIFT Pt is a 23 y/o female admitted on 03/09/18 for benzo and opiate withdrawal. Pt was also using methamphetamine, adderall, and cocaine. Pt was given PRN Motrin and Tylenol for headache and last COWS 7 and CIWA 8 during day shift. Upon assessment pt presented with anxiety, agitation, intermittent headache, difficulty sleeping, disheveled appearance, unkempt room. Medications due. Safety measures in place. Call light within reach. Will continue to monitor. Addendum: 03/14/18 at 2232 by OCTAVIO CASTANEDA RN Additional: Pt is also on contact isolation d/t MRSA in the nares.
[2018-03-14 20:00] VITALS: BP 115/78
--- NOTE | 2018-03-14 20:00 | NUR ---
CIWA/COWS ASSESSMENT CIWA 8 and COWS 7. Pt presents with anxiety, agitation, intermittent headache, difficulty sleeping, disheveled appearance, unkempt room.
[2018-03-14] MEDS: PRAZOSIN HCL 1 MG CAPSULE PO SCH (21:57)
[2018-03-14] MEDS: diphenhydrAMINE 50 MG CAPSULE PO PRN (22:13)
--- NOTE | 2018-03-14 22:13 | NUR ---
PRN BENADRYL ADMINISTRATION Pt requests sleep aid for difficulty falling asleep. Safety measures in place. Call light within reach. Will continue to monitor.
--- NOTE | 2018-03-14 23:13 | NUR ---
PRN BENADRYL REASSESSMENT Pt laying in bed with eyes closed, medication noted effective. Safety measures in place. Call light within reach. Will continue to monitor.
--- NOTE | 2018-03-15 | NUR ---
CIWA/COWS DEFERRED AND VITALS REFUSED Pt laying in bed with eyes closed, CIWA/COWS deferred, to be assessed when pt is awake per orders. Vitals refused. Respirations even and unlabored. Safety measures in place. Call light within reach. Will continue to monitor.
--- NOTE | 2018-03-15 07:07 | NUR ---
END OF SHIFT Pt is a 23 y/o female admitted on 03/09/18 for benzo and opiate withdrawal. Pt was also using methamphetamine, adderall, and cocaine. Pt finished a 5 day Valium and 5 day Subutex taper and is scheduled to be d/c today. Pt presented with anxiety, agitation, intermittent headache, stuffy nose, difficulty sleeping, disheveled appearance, unkempt room. Scheduled medications and PRN Benadryl administered, effective in S/S of withdrawal as verbalized by pt. Last COWS 7 and CIWA 8. Pt slept 7 hours. Intake 1300 ml, void x 2, stool x 0. Safety measures in place. Call light within reach. Pts needs have been met. Endorsed to day shift nurse.
[2018-03-15 08:00] VITALS: BP 100/62
--- NOTE | 2018-03-15 08:00 | NUR ---
START OF SHIFT AND COWS CIWA ASSESSMENT Pt 23 y/o female admitted for for benzo/ opiate withdrawal. Pt received in room awake watching television. Pt alert and oriented to name, place, and time. Perrla. Skin warm and moist to touch. Respirations even and unlabored. Appears disheveled. Clothes scattered throughout the room. Encouraged to maintain hygiene. Cows=5 ciwa=6 @0800. Anxious and restless. Pacing. It was reported that pt slept for 7 hours last night. Pt completed a 5 day valium and a 5 day subutex taper. Pt is scheduled to be discharged today. Bed on lowest position with side railsx x2 up for safety. Call light within reach.
[2018-03-15 08:33] LABS: BILIRUBIN,TOTAL 0.3 mg/dL (0.2-1.0); POTASSIUM 4.3 mmol/L (3.5-5.1); TOTAL PROTEIN, SERUM 6.4 g/dL (6.4-8.2)
[2018-03-15] MEDS ORDERED: MAGNESIUM OXIDE 400 MG TABLET PO ONE (08:45)
[2018-03-15] MEDS: FLUOXETINE HCL 20 MG CAPSULE PO SCH (08:46)
[2018-03-15] MEDS: GABAPENTIN 400 MG CAPSULE PO SCH (08:46)
[2018-03-15] MEDS: busPIRone 5 MG TABLET PO SCH (08:46)
[2018-03-15] MEDS: MULTIVITAMINS,THERAPEUTIC TABLET PO SCH (08:46)
[2018-03-15] MEDS: MUPIROCIN 2% OINT 22 GM TUBE NS SCH (08:47)
[2018-03-15] MEDS: HYDROCHLOROTHIAZIDE 12.5 MG CAPSULE PO SCH (09:00)
--- NOTE | 2018-03-15 09:31 | NUR ---
DISCHARGE Pt 23 y/o female admitted for for benzo/ opiate withdrawal. Pt alert and oriented to name, place, and time. Perrla. Skin warm and moist to touch. Respirations even and unlabored. VS wnl. Pt denies any SI/ HI. Home medications, discharge papers, belongings in the cabinet, belongings in the cassette, and prescriptions packed in pt bag. No distress noted. Pt discharged to [facility] via private transport.
== END 2018-03-15 09:31 | disposition other institution (70) | DRG 895 ==
LOC: SRC 21:09
PROVIDERS: ADMIT Family Medicine Addiction Medicine; ATTEND Family Medicine Addiction Medicine
PROC: HZ2ZZZZ Detoxification Services for Substance Abuse Treatment (ICD-10-PCS; principal; 2018-03-09)
PROC: HZ31ZZZ Individual Counseling for Substance Abuse Treatment, Behavioral (ICD-10-PCS; 2018-03-10)
PROC: HZ41ZZZ Group Counseling for Substance Abuse Treatment, Behavioral (ICD-10-PCS; 2018-03-10)
DX: F13.230 Sedative, hypnotic or anxiolytic dependence with withdrawal, uncomplicated (principal); G40.509 Epileptic seizures related to external causes, not intractable, without status epilepticus; F31.30 Bipolar disorder, current episode depressed, mild or moderate severity, unspecified; F11.23 Opioid dependence with withdrawal; F15.23 Other stimulant dependence with withdrawal; F14.10 Cocaine abuse, uncomplicated; Z91.89 Other specified personal risk factors, not elsewhere classified; F17.210 Nicotine dependence, cigarettes, uncomplicated; F43.10 Post-traumatic stress disorder, unspecified; F90.9 Attention-deficit hyperactivity disorder, unspecified type; F41.1 Generalized anxiety disorder; Z91.5 Personal history of self-harm; Z79.899 Other long term (current) drug therapy; E83.42 Hypomagnesemia; E87.6 Hypokalemia; Z72.51 High risk heterosexual behavior; R74.0 Nonspecific elevation of levels of transaminase and lactic acid dehydrogenase [LDH]; R94.6 Abnormal results of thyroid function studies; Z63.9 Problem related to primary support group, unspecified
CPT/HCPCS: 36415; 70030-TC; 80307; 80324; 80346; 80349; 80353; 80361; 83735; 84443; 84703; 85025; 86580; 86592; 86705; 86803; 87340; 87491; 87806; A4663; G0480; Q0162; Q0163